=== PATIENT | female | born 1985 | race Caucasian/White ===

== ENCOUNTER → 2017-01-17 | Outpatient (REF) | payer OTHER ==
[2017-01-17 17:17] LABS: FREE T4 1.03 NG/DL (0.76-1.46)
== END ==
LOC: M SFHCLERA 10:40
PROVIDERS: ATTEND Family Medicine
DX: E03.9 Hypothyroidism, unspecified (principal)

== ENCOUNTER → 2017-04-26 | Outpatient (REF) | payer OTHER | LOC: M SFHCLERA 20:33 | PROVIDERS: ATTEND Nurse Practitioner Family | DX: R35.0 Frequency of micturition (principal) ==

== ENCOUNTER → 2017-08-07 | Outpatient (REF) | payer OTHER | LOC: M SFHCLERA 15:57 | DX: J02.9 Acute pharyngitis, unspecified (principal) ==

== ENCOUNTER → 2017-08-09 | Outpatient (CLI) | payer OTHER | LOC: M LRY 18:31 | DX: M79.671 Pain in right foot (principal) ==

== ENCOUNTER → 2017-10-03 | Outpatient (REF) | payer OTHER | LOC: M SFHCLERA 09:27 | DX: E03.9 Hypothyroidism, unspecified (principal) ==

== ENCOUNTER → 2018-10-31 | Outpatient (CLI) | payer OTHER ==
--- NOTE | 2018-10-31 11:41 | REP ---
SACROILIAC JOINTS: Four views of the sacroiliac joints performed. There is no fracture or dislocation. There is mild joint space narrowing and subchondral sclerosis at the sacroiliac joints bilaterally. IMPRESSION: Mild arthritic changes bilateral sacroiliac joints. Electronically Signed by Vincent Dalal MD 10/31/2018 03:26 P
== END ==
LOC: M LRY 10:29
PROVIDERS: ATTEND Family Medicine
DX: M53.3 Sacrococcygeal disorders, not elsewhere classified (principal)
CPT/HCPCS: 72202; 84443; G0463

== ENCOUNTER → 2018-10-31 | Outpatient (REF) | payer OTHER | LOC: M SFHCLERA 10:07 | PROVIDERS: ATTEND Family Medicine | DX: E03.9 Hypothyroidism, unspecified (principal) ==